=== PATIENT | male | born 1960 | race Two or more races ===

== ENCOUNTER 2017-12-23 11:40 | Outpatient (CLI) | payer OTHER | END 2017-12-23 11:44 | disposition home or self-care (01) | LOC: RAD 501 11:40 | DX: M51.27 Other intervertebral disc displacement, lumbosacral region (principal); M50.20 Other cervical disc displacement, unspecified cervical region; G47.09 Other insomnia; F32.89 Other specified depressive episodes; F41.8 Other specified anxiety disorders; E07.89 Other specified disorders of thyroid; E78.2 Mixed hyperlipidemia ==